=== PATIENT | female | born 1990 | race Hispanic/Latino ===

== ENCOUNTER 2019-12-20 00:11 | Inpatient (IN) | payer BC, OTHER ==
[2019-12-20] MEDS ORDERED: BUTORPHANOL 1 MG/ML INJ IV PRN (04:48)
[2019-12-20] MEDS ORDERED: CARBOPROST TROME 250 MCG/ML IM PRN (04:48)
[2019-12-20] MEDS ORDERED: METHYLERGONOVINE 0.2MG/ML AMP IM PRN (04:48)
[2019-12-20] MEDS ORDERED: PROMETHAZINE INJ 25 MG/ML AMP IM PRN (04:48)
[2019-12-20] MEDS ORDERED: Ringers Lactate 1,000 ML IV PRN (04:48)
[2019-12-20] MEDS ORDERED: Ringers Lactate 1,000 ML IV SCH (05:00)
[2019-12-20] MEDS ORDERED: OXYTOCIN/LR 20 UNIT/1,000 ML BAG IV SCH ×2 (05:00→15:00)
[2019-12-20 05:25] LABS: Urine Appearance CLOUDY; Urine Bilirubin NEGATIVE (NEG); Urine Blood NEGATIVE (NEG); Urine Color YELLOW; Urine Glucose NEGATIVE (NEG); Urine Protein TRACE (NEG); Urine Specific Gravity 1.025 (1.005-1.030); Urine pH 6.5 (5.0-7.0)
[2019-12-20 05:26] LABS: Urine Microscopic Reflex ORDER UMIC
[2019-12-20 05:35] LABS: Absolute Lymphocytes (CBC) 2.2 K/uL (0.7-4.9); Basophils % 0.6 % (0-1.3); Hematocrit 30.4 % (36.0-45.0); Lymphocytes % 28.3 % (15.3-44.8); MPV 8.3 fL (7.6-11.3); RBC Red Blood Cell Count 3.65 M/uL (3.86-4.86)
[2019-12-20 06:04] LABS: Calcium Oxalate Crystals- Ur MANY (NONE SEEN); Urine Bacteria >50 /HPF (<20); Urine Culture Reflex Order REFLEXED; Urine RBC <5 /HPF (NONE SEEN)
--- NOTE | 2019-12-20 06:25 | PREOPHP ---
Date of Admission: 12/20/2019 Rose Mary Serna is a 29-year-old primigravida, 39 weeks. Rh positive. Immune to rubella. Negati ve beta strep screen. Negative COVID status. 2.5 to 3 cm, still somewhat posterior rupture membrane s, clear fluid. FHT is normal and reactive. She is on light Pitocin, which we will start to increas e. Full labor talk given. Anticipate delivery sometime later today. FELIPA/MILY Voice ID: [id number]
[2019-12-20 07:35] VITALS: BMI 41.0
[2019-12-20] MEDS ORDERED: ROPIVACAINE HCL 100 ML IV PRN (09:44)
[2019-12-20] MEDS ORDERED: FENTANYL CITR 100 MCG/2 ML IV ONE (09:45)
[2019-12-20] MEDS ORDERED: ROPIVACAINE HCL 2 MG/ML 100ML IV SCH (10:00)
[2019-12-20] MEDS ORDERED: ROPIVACAINE HCL 0 ML ONE (10:06)
[2019-12-20] MEDS ORDERED: LIDOCAINE 1% MPF 30 ML VIAL ONE (11:40)
--- NOTE | 2019-12-20 11:49 | PN ---
The patient has her epidural extremely comfortable in fact she really cannot feel the contractions at all. She is now 8.5 to 9 cm, slight edema at the 12 o'clock position on the cervix, but the baby is a good +1 station. We will check again and noted a 30 minutes, and she should be ready to start pus gregory fairly soon. FELIPA/MILY Voice ID: [id number] Report ID: [id number]
[2019-12-20] MEDS ORDERED: CEFAZOLIN/SWI 1gm 1 GM/10 ML SYR ONE (14:07)
[2019-12-20] MEDS ORDERED: SILVER NITRATE 1 APPL TOP ONE (14:20)
[2019-12-20] MEDS ORDERED: ACETAMINOPHEN 500 MG TAB PO PRN (14:22)
[2019-12-20] MEDS ORDERED: DOCUSATE NA/SENNA CONC 1 TAB PO PRN (14:22)
[2019-12-20] MEDS ORDERED: DIPHENHYDRAMINE 25 MG TAB/CAP PO PRN (14:22)
[2019-12-20] MEDS ORDERED: Oxycodone HCl/Acetaminophen 1 TAB TAB PO PRN ×2 (14:22)
[2019-12-20] MEDS ORDERED: BISACODYL 10 MG RECTAL SUPP PR PRN (14:22)
[2019-12-20] MEDS: METHYLERGONOVINE 0.2 MG TAB PO PRN ×3 (15:15→23:35)
[2019-12-20] MEDS: IBUPROFEN 600 MG TAB PO PRN (16:10)
[2019-12-20] MEDS ORDERED: Ringers Lactate 1,000 ML IV ONE (17:28)
--- NOTE | 2019-12-21 00:08 | OP ---
Surgeon: Jv Green MD Rose Mary Serna is a 29-year-old primigravida at 39 weeks, followed antepartum without complica tions, Rh positive, immune to rubella, negative beta strep screen, negative COVID status, 3 cm this m orning, rupture of membranes, clear fluid. Stadol IV 1 mg, Phenergan 25 mg IM, at 5 cm, requested an d received epidural anesthesia. Second stage of about an hour and half. Epidural was basically allo wed to wear off. The patient got an about 30 to 45 minutes of good pushing and then she delivered sp ontaneously of an 8 pounds female, Apgars 9 and 9. Third degree spontaneous laceration sutured with 2-0 chromic interrupted for sphincter repair and running lock. Schultze delivery of the placenta, wh ich inspected and noted to be intact and normal. Estimated blood loss 300 mL. Uterine fundus very d ifficult to palpate. I have ordered 1 g of Ancef for prophylaxis for laceration and Methergine simpl y for prophylaxis as very strong fundal pressure does not elicit any clots. I could almost think I f elt a clot, but that may be just anterior lip of the cervix. At this point, blood loss is minimal. We will put the patient on p.o. Methergine, keep the IV until probably tomorrow morning just to be on the safe side. Final Diagnoses: Term intrauterine , labor induction, vaginal delivery, epidural anesthesia , third degree laceration. FELIPA/MILY Voice ID: [id number] Report ID: [id number]
[2019-12-21 00:49] LABS: RPR (Rapid Plasma Reagin) NON-REACT (NON-REACT)
[2019-12-21] MEDS: METHYLERGONOVINE 0.2 MG TAB PO PRN (03:45)
--- NOTE | 2019-12-21 08:01 | DS ---
A 29-year-old primigravida, 39 weeks, delivered of an 8 pounds female infant, Apgars 9 and 9. Sponta neous third degree laceration repaired with 2-0 chromic, local infiltration as well. 300 mL blood lo ss. Schultze delivery of the placenta, which was inspected and noted to be intact and normal. Secon d stage of approximately an hour and 20 minutes. afebrile, ambulating and voiding. Lochi a is normal. She is Rh positive. Immune to rubella. Beta strep status negative. COVID status nega tive. No post epidural problems today. She will be dismissed later this afternoon, to report back t o my office in 1 and 6 weeks for followup, to report any temperature elevation of [address], severe pain, heavy bleeding, or any other type of abnormalities. Requests no analgesics on dism issal. She has had her Tdap immunization during the . Final Diagnoses: Term intrauterine at 39 weeks, vaginal delivery, spontaneous third degree laceration. FELIPA/MILY Voice ID: [id number] Report ID: [id number]
[2019-12-21 12:30] VITALS: BP 141/80; TEMP 97.6
[2019-12-21] MEDS: IBUPROFEN 600 MG TAB PO PRN (14:02)
--- NOTE | 2019-12-24 10:56 | PN ---
The patient is now completely dilated. Baby is +1 station. She is rather numb. We will turn the ep idural back from 8, maintenance dose to 6, and hopefully she can push effectively. If not, we will l et her rest for a while and then let the baby come down a little bit more. FELIPA/MILY Voice ID: [id number] Report ID: [id number]
[2019-12-25 19:23] LABS: HBsAG Nonreactive (Nonreactive)
== END 2019-12-21 16:00 | disposition home or self-care (01) | DRG 768 ==
LOC: 2ND-WC 04:00
PROVIDERS: ADMIT Specialist; ATTEND Specialist
PROC: 10E0XZZ Delivery of Products of Conception, External Approach (ICD-10-PCS; principal; 2019-12-20)
PROC: 0DQR0ZZ Repair Anal Sphincter, Open Approach (ICD-10-PCS; 2019-12-20)
PROC: 10907ZC Drainage of Amniotic Fluid, Therapeutic from Products of Conception, Via Natural or Artificial Opening (ICD-10-PCS; 2019-12-20)
PROC: 3E033VJ Introduction of Other Hormone into Peripheral Vein, Percutaneous Approach (ICD-10-PCS; 2019-12-20)
DX: O70.20 Third degree perineal laceration during delivery, unspecified (principal); Z37.0 Single live birth; Z3A.39 39 weeks gestation of pregnancy; Z11.59 Encounter for screening for other viral diseases
CPT/HCPCS: 36415; 81003; 81015; 85025; 86592; 86850; 86900; 86901; 87086; 87088; 87340; J0595; J0690; J2210; J2550; J2590; J2795; J3010; J7120